=== PATIENT | male | born 1940 | race African-American/Black ===

== ENCOUNTER → 2017-06-13 | Outpatient (CLI) | payer MEDICARE ==
[~2017-06-13] MED LIST: AMARYL PO; AMARYL2 MG PO; AMLODIPINE BESYL5 MG PO; ASPIRIN PO; ASPIRIN81 M2 PO; CERTAGEN PO; CLONIDINE HCL0.1 MG PO; CLONIDINE PO; COREG PO; DIOVAN PO; FINASTERIDE5 MG PO; FUROSEMIDE40 MG PO; HUMULIN N300 U/3 ML SUBQ; HYDRALAZINE HC100 MG PO; HYDROCODON-ACE1 EAC1 PO; HYDROCODONE-APA1 T58 PO; ISORDIL PO; LASIX PO; LEVEMIR SUBQ; LEVEMIR100 UNITS/ SUBQ; LISINOPRIL PO; NEURONTIN100 MG PO; NICOTINE TRANSD14 MG EXT; NITROSTAT0.4 MG PO; NOVOLOG100 U/ML; NOVOLOG100 U/ML SUBQ; POTASSIUM CHLO20 ME1 PO; POTASSIUM GLUCO99 MG PO; POTASSIUM99 M3 PO; SIMVASTATIN80 MG PO; SULAR PO; TRADJENTA5 MG PO; VALSARTAN-HCTZ1 EAC2 PO; ZOCOR80 MG PO; ZYLOPRIM PO; ZYLOPRIM100 MG PO
== END | disposition home or self-care (01) ==
LOC: CLAB 16:22
DX: E11.65 Type 2 diabetes mellitus with hyperglycemia (principal)
CPT/HCPCS: 36415; 83036

== ENCOUNTER → 2017-06-13 | Outpatient (CLI) | payer MEDICARE ==
[2017-06-13 17:05] LABS: URINE APPEARANCE CLEAR; URINE BILIRUBIN NEG (NEG); URINE BLOOD TRACE (NEG); URINE COLOR YELLOW; URINE GLUCOSE 250 MG/DL (NEG); URINE KETONE NEG (NEG); URINE LEUKOCYTE ESTERASE NEG (NEG); URINE NITRATE NEG (NEG); URINE PROTEIN 3+ (NEG); URINE SPECIFIC GRAVITY 1.015 (1.003-1.035); URINE UROBILINOGEN 0.2 MG/DL (NEG)
[2017-06-13 17:09] LABS: BASOPHIL# 0.1 X10e3 (0-0.3); BASOPHIL% 0.7 % (0-2.5); EOSINOPHIL# 0.1 X10e3 (0-0.7); EOSINOPHIL% 1.1 % (0.0-7.0); HEMATOCRIT 31.3 % (38.0-50.0); HEMOGLOBIN 10.8 gm/dL (13.0-16.0); LYMPHOCYTE# 1.8 X10e3 (1.0-3.5); LYMPHOCYTE% 20.9 % (17.0-45.0); MEAN CELL VOLUME 82.6 FL (83-96); MEAN CORPUSCULAR HEMOGLOBIN 28.5 PG (28-34); MEAN CORPUSCULAR HGB CONC 34.5 g/dL (30-36); MEAN PLATELET VOLUME 8.3 FL (6.5-11.5); MONOCYTE# 0.7 X10e3 (0-1.0); MONOCYTE% 7.8 % (3.0-12.0); NEUTROPHIL# 6.1 X10e3 (1.5-7.1); NEUTROPHIL% 69.5 % (40-75); PLATELET COUNT 269 X10e3 (140-420); RED BLOOD COUNT 3.79 X10e (3.90-5.60); RED CELL DISTRIBUTION WIDTH 12.9 % (11.0-15.5); URINE BACTERIA AUWI NEG (NEGATIVE); URINE SQUAMOUS EPITHELIAL CELL NONE SEEN /[HPF]; WHITE BLOOD COUNT 8.8 X10e3 (4.0-10.5)
[2017-06-13 17:11] LABS: DIFF IND NO
[2017-06-13 17:38] LABS: BILIRUBIN,TOTAL 0.5 mg/dL (0.2-2.0); BUN/CREATININE RATIO 14.81; CALCIUM SERUM 9.3 mg/dL (8.4-10.2); CREATININE SERUM 5.4 mg/dL (0.6-1.4); GLOM FILT RATE Estimated 10.8 mL/min (>60); POTASSIUM 3.6 mmol/L (3.5-5.1); PROTEIN TOTAL SERUM 7.9 g/dL (6.0-8.3)
[2017-06-13 17:52] LABS: CREATININE,RANDOM URINE 113 mg/dL; TOTAL PROTEIN,RANDOM URINE 193 mg/dl (<10)
== END | disposition home or self-care (01) ==
LOC: CLAB 16:28
PROVIDERS: Internal Medicine Nephrology
DX: N18.3 Chronic kidney disease, stage 3 (moderate) (principal)
CPT/HCPCS: 36415; 80053; 81003; 82570; 84156; 85025

== ENCOUNTER → 2017-07-04 | Outpatient (CLI) | payer MEDICARE ==
[2017-07-04 07:50] LABS: BASOPHIL% 0.5 % (0-2.5); EOSINOPHIL# 0.1 X10e3 (0-0.7); EOSINOPHIL% 1.7 % (0.0-7.0); HEMATOCRIT 32.5 % (38.0-50.0); HEMOGLOBIN 11.3 gm/dL (13.0-16.0); LYMPHOCYTE# 2.4 X10e3 (1.0-3.5); LYMPHOCYTE% 27.3 % (17.0-45.0); MEAN CELL VOLUME 83.2 FL (83-96); MEAN CORPUSCULAR HGB CONC 34.9 g/dL (30-36); MEAN PLATELET VOLUME 7.8 FL (6.5-11.5); MONOCYTE# 0.8 X10e3 (0-1.0); MONOCYTE% 9.1 % (3.0-12.0); NEUTROPHIL# 5.4 X10e3 (1.5-7.1); NEUTROPHIL% 61.4 % (40-75); PLATELET COUNT 241 X10e3 (140-420); RED BLOOD COUNT 3.91 X10e (3.90-5.60); RED CELL DISTRIBUTION WIDTH 13.2 % (11.0-15.5); WHITE BLOOD COUNT 8.8 X10e3 (4.0-10.5)
[2017-07-04 07:59] LABS: DIFF IND NO
[2017-07-04 08:00] LABS: URINE APPEARANCE CLEAR; URINE BILIRUBIN NEG (NEG); URINE BLOOD 2+ (NEG); URINE COLOR YELLOW; URINE GLUCOSE NEG (NEG); URINE KETONE NEG (NEG); URINE LEUKOCYTE ESTERASE NEG (NEG); URINE NITRATE NEG (NEG); URINE PH 6.5 (5-8); URINE PROTEIN 3+ (NEG); URINE SPECIFIC GRAVITY 1.013 (1.003-1.035); URINE UROBILINOGEN 0.2 MG/DL (NEG)
[2017-07-04 08:02] LABS: U HYALINE CASTS AUWI 0-2 /[LPF]; URBCS1 AUWI 50-100 /[HPF] (0-2); URINE BACTERIA AUWI NEG (NEGATIVE); URINE SQUAMOUS EPITHELIAL CELL NONE SEEN /[HPF]; UWBCS1 AUWI 0-2 (0-5)
[2017-07-04 08:10] LABS: URINE SOURCE CLEAN CATCH
[2017-07-04 08:35] LABS: BILIRUBIN,TOTAL 0.4 mg/dL (0.2-2.0); BUN/CREATININE RATIO 15.09; CALCIUM SERUM 9.4 mg/dL (8.4-10.2); CREATININE SERUM 5.1 mg/dL (0.6-1.4); GLOM FILT RATE Estimated 11.5 mL/min (>60); POTASSIUM 3.5 mmol/L (3.5-5.1); PROTEIN TOTAL SERUM 7.2 g/dL (6.0-8.3)
[2017-07-04 08:47] LABS: CREATININE,RANDOM URINE 123 mg/dL; TOTAL PROTEIN,RANDOM URINE 124 mg/dl (<10)
== END | disposition home or self-care (01) ==
LOC: CLAB 07:18
PROVIDERS: Internal Medicine Nephrology
DX: N18.3 Chronic kidney disease, stage 3 (moderate) (principal)
CPT/HCPCS: 36415; 80053; 81003; 82570; 84156; 85025